=== PATIENT | male | born 2000 | race Caucasian/White ===

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

== ENCOUNTER 2024-03-11 17:00 | Emergency (ER) | payer MEDICAID ==
[~2024-03-11] VITALS: Ht 401.3 cm; Wt 106.0 kg
[2024-03-11] MEDS ORDERED: IBUP-1986 PO (17:49)
[2024-03-11] MEDS ORDERED: ACET-3209 PO (17:49)
[2024-03-11] MEDS ORDERED: CLIN-197 PO (17:49)
[2024-03-11 18:07] VITALS: BP 146/75; PULSE 83; RESP 17; TEMP 98.1; O2SAT 98
== END 2024-03-11 18:16 | disposition home or self-care (01) ==
LOC: ER 17:01
DX: K04.7 Periapical abscess without sinus (principal); Z88.0 Allergy status to penicillin; Z88.2 Allergy status to sulfonamides; Z88.8 Allergy status to other drugs, medicaments and biological substances
CPT/HCPCS: 99283